=== PATIENT | female | born 1945 | race Caucasian/White ===

== ENCOUNTER 2021-07-18 13:29 | Emergency (ER) | payer MEDICARE, MEDICAID ==
[~2021-07-18] VITALS: Ht 160 cm; Wt 113.6 kg
[~2021-07-18 13:29] MED LIST: ALEN70TA80 PO; AMLO5TAB PO; ASPI-611 PO; ATOR10TA70 PO; CHOL10005 PO; ENAL-79 PO; FURO-150 PO; GLIP5TAB13 PO; LEVO88TA2 PO; METO-395 PO; OXYC1TAB17 PO; PIOG30TA72 PO; POTA8CAP20 PO
[2021-07-18 13:43] VITALS: BP 208/76
[2021-07-18 14:42] LABS: BASOPHILS % (AUTO) 0.5 % (0-1); EOSINOPHILS # (AUTO) 0.1 X10'3 (0-0.9); EOSINOPHILS % (AUTO) 1.2 % (0-6); HEMATOCRIT 38.4 % (35.0-45.0); HEMOGLOBIN 12.5 g/dl (12.0-16.0); LYMPHOCYTES # (AUTO) 1.4 X10'3 (1.1-4.8); LYMPHOCYTES % (AUTO) 24.8 % (21-51); MEAN CORPUSCULAR HEMOGLOBIN 30.8 PG (27.0-31.0); MEAN CORPUSCULAR HGB CONC 32.7 g/dL (33.0-36.5); MEAN CORPUSCULAR VOLUME 94.3 FL (78-98); MEAN PLATELET VOLUME 10.6 FL (7.4-10.4); MONOCYTES # (AUTO) 0.3 X10'3 (0-0.9); MONOCYTES % (AUTO) 4.9 % (2-12); NEUTROPHILS # (AUTO) 3.9 X10'3 (1.8-7.7); NEUTROPHILS % (AUTO) 68.6 % (42-75); PLATELET COUNT 162 X10'3 (140-440); RED BLOOD COUNT 4.07 X10'6 (4.20-5.60); RED CELL DISTRIBUTION WIDTH 15.7 % (11.5-14.5); WHITE BLOOD COUNT 5.7 X10'3 (4.5-11.0)
[2021-07-18 15:06] LABS: ALANINE AMINOTRANSFERASE 38 U/L (12-78); ALBUMIN 3.9 G/DL (3.4-5.0); ALBUMIN/GLOBULIN RATIO 1.1 (1.1-1.5); ALKALINE PHOSPHATASE 77 IU/L (46-116); ANION GAP 11 (8-16); ASPARTATE AMINO TRANSFERASE 66 U/L (10-37); BILIRUBIN,TOTAL 0.7 MG/DL (0.1-1.0); BLOOD UREA NITROGEN 20 MG/DL (7-18); BUN/CREATININE RATIO 19.6 (6.6-38.0); CALCIUM 9.1 MG/DL (8.5-10.1); CHLORIDE 106 MMOL/L (99-107); CREATININE 1.02 MG/DL (0.40-0.90); GLUCOSE 108 MG/DL (70-104); POTASSIUM 4.2 MMOL/L (3.5-5.1); SODIUM 142 MMOL/L (135-145); TOTAL CARBON DIOXIDE 25.3 MMOL/L (24-32); TOTAL PROTEIN 7.6 G/DL (6.4-8.2); eGFR 52 ML/MIN
== END 2021-07-18 17:26 | disposition left against medical advice (07) ==
LOC: ER 13:29
DX: R07.89 Other chest pain (principal); R06.02 Shortness of breath; R53.1 Weakness; R42 Dizziness and giddiness; R11.10 Vomiting, unspecified; I11.0 Hypertensive heart disease with heart failure; I50.9 Heart failure, unspecified; E78.00 Pure hypercholesterolemia, unspecified; E11.9 Type 2 diabetes mellitus without complications; Z88.5 Allergy status to narcotic agent; Z79.82 Long term (current) use of aspirin; Z79.899 Other long term (current) drug therapy
CPT/HCPCS: 71045; 80053; 83880; 84484; 85025; 93005; 99285

== ENCOUNTER 2021-08-06 15:34 | Emergency (ER) | payer MEDICARE, MEDICAID ==
[~2021-08-06] VITALS: Ht 160 cm; Wt 109.1 kg
[2021-08-06 16:11] VITALS: BP 151/58
[2021-08-06] MEDS ORDERED: HYDROcodone/acetaminophen 5mg/325mg tablet PO ONE (16:15)
[2021-08-06] MEDS ORDERED: HYDR-3965 PO (18:29)
== END 2021-08-06 19:10 | disposition home or self-care (01) ==
LOC: ER 15:34
DX: S52.512A Displaced fracture of left radial styloid process, initial encounter for closed fracture (principal); M25.532 Pain in left wrist; I50.9 Heart failure, unspecified; I11.0 Hypertensive heart disease with heart failure; E78.00 Pure hypercholesterolemia, unspecified; E11.9 Type 2 diabetes mellitus without complications; Z88.5 Allergy status to narcotic agent; Z79.82 Long term (current) use of aspirin; Z79.899 Other long term (current) drug therapy; W19.XXXA Unspecified fall, initial encounter; Y93.89 Activity, other specified; Y92.89 Other specified places as the place of occurrence of the external cause; Y99.8 Other external cause status
CPT/HCPCS: 25605; 73110; 99284

== ENCOUNTER 2021-08-18 08:14 | Day surgery (SDC) | payer MEDICARE, MEDICAID ==
[2021-08-18] VITALS (9 sets, daily range): BP systolic 153–185; BP diastolic 67–77
[~2021-08-18] VITALS: Ht 160 cm; Wt 114.7 kg
[~2021-08-18 08:14] MED LIST changes: +DOCUMENT DATE & TIME OF BETA-BLOCKER PO ONE; +HYDR-3965 PO; +famotidine 20mg tablet PO ONE; +ringers solution, lacted 1,000 ML IV SCH
[2021-08-18 09:33] LABS: BASOPHILS % (AUTO) 0.2 % (0-1); EOSINOPHILS # (AUTO) 0.1 X10'3 (0-0.9); EOSINOPHILS % (AUTO) 2.2 % (0-6); LYMPHOCYTES # (AUTO) 1.3 X10'3 (1.1-4.8); LYMPHOCYTES % (AUTO) 29.4 % (21-51); MEAN CORPUSCULAR HEMOGLOBIN 31.4 PG (27.0-31.0); MEAN CORPUSCULAR HGB CONC 32.8 g/dL (33.0-36.5); MEAN CORPUSCULAR VOLUME 95.5 FL (78-98); MEAN PLATELET VOLUME 10.5 FL (7.4-10.4); MONOCYTES # (AUTO) 0.2 X10'3 (0-0.9); MONOCYTES % (AUTO) 5.4 % (2-12); NEUTROPHILS # (AUTO) 2.8 X10'3 (1.8-7.7); NEUTROPHILS % (AUTO) 62.8 % (42-75); PRE OP HEMATOCRIT 36.4 % (35.0-45.0); PRE OP HEMOGLOBIN 11.9 g/dL (12.0-16.0); PRE OP PLATELET COUNT 145 X10'3 (140-440); RED BLOOD COUNT 3.81 X10'6 (4.20-5.60); RED CELL DISTRIBUTION WIDTH 16.3 % (11.5-14.5)
[2021-08-18] MEDS ORDERED: NAPR220C62 PO (09:41)
[2021-08-18] MEDS ORDERED: HYDR-3965 PO (09:41)
[2021-08-18 09:48] LABS: ALBUMIN 3.7 G/DL (3.4-5.0); ALBUMIN/GLOBULIN RATIO 0.9 (1.1-1.5); ALKALINE PHOSPHATASE 91 IU/L (46-116); BLOOD UREA NITROGEN 17 MG/DL (7-18); BUN/CREATININE RATIO 19.5 (6.6-38.0); CALCIUM 9.1 MG/DL (8.5-10.1); CHLORIDE 106 MMOL/L (99-107); CREATININE 0.87 MG/DL (0.40-0.90); PRE OP ALT 26 U/L (30-65); PRE OP ANION GAP 11 (8-16); PRE OP AST 35 U/L (10-37); PRE OP BILIRUB, TOTAL 0.7 MG/DL (0.0-1.0); PRE OP GLUCOSE 124 MG/DL (70-104); PRE OP POTASSIUM 3.8 MMOL/L (3.4-5.1); PRE OP SODIUM 141 MMOL/L (135-145); TOTAL CARBON DIOXIDE 24.4 MMOL/L (24-32); TOTAL PROTEIN 7.6 G/DL (6.4-8.2); eGFR 63 ML/MIN
[2021-08-18 09:59] LABS: ANISOCYTOSIS 1+; LARGE PLATELETS FEW; PLATELET ESTIMATE NORMAL
[2021-08-18] MEDS ORDERED: cefazolin/dext.iso 2gm/100ml 100 ML IV ONE (10:25)
[2021-08-18] MEDS ORDERED: etomidate 2mg/ml inj. ONE (11:02)
[2021-08-18] MEDS ORDERED: succinylcholine 20mg/ml inj IV ONE (11:02)
[2021-08-18] MEDS ORDERED: fentaNYL/PF 50MCG/1 ML 2ML syringe ONE (11:03)
[2021-08-18] MEDS ORDERED: sevoflurane 250ml liquid IH ONE (11:34)
[2021-08-18] MEDS ORDERED: ondansetron/PF 4mg/2ml inj ONE (11:57)
[2021-08-18] MEDS ORDERED: hydrALAZINE 20mg/ml inj. IV ONE (11:58)
[2021-08-18] MEDS ORDERED: ringers solution, lacted 1,000 ML IV SCH (12:25)
[2021-08-18] MEDS ORDERED: fentaNYL/PF 50MCG/1 ML 2ML syringe IV PRN ×2 (12:25)
[2021-08-18] MEDS ORDERED: morphine 2 MG/ML inj. syringe IV PRN (12:25)
[2021-08-18] MEDS ORDERED: ondansetron/PF 4mg/2ml inj IV PRN (12:25)
[2021-08-18] MEDS ORDERED: hydrALAZINE 20mg/ml inj. IV PRN (12:25)
[2021-08-18] MEDS ORDERED: morphine 4 MG/ML inj SYRINge IV PRN (12:25)
[2021-08-18] MEDS ORDERED: enalaprilat dihydrate 2.5mg/2ml vial IV PRN (12:25)
[2021-08-18] MEDS ORDERED: ROPIVAcaine 0.5% (5mg/ml) 30ml vial ONE (12:26)
--- NOTE | 2021-08-18 12:46 | NUR ---
Received from OR via , accompanied by Anesthesiologist DR MESSER and report given by Anesthesiolgist. AWAKENS TO VOICE. VITALS STABLE. DRESSING DI. MARCELLE PAIN. FINGERS WARM AND PINK. LUE IN A SIMPLE SLING.
--- NOTE | 2021-08-18 14:16 | NUR ---
AWAKE AND ORIENTED. VITALS STABLE. DRESSING DI. MARCELLE PAIN. HOME WITH HER SON AT THIS TIME.
== END 2021-08-18 14:16 | disposition home or self-care (01) ==
LOC: OR 08:14
PROVIDERS: ATTEND Orthopaedic Surgery
DX: S52.552A Other extraarticular fracture of lower end of left radius, initial encounter for closed fracture (principal); I11.0 Hypertensive heart disease with heart failure; I50.9 Heart failure, unspecified; G47.30 Sleep apnea, unspecified; G43.909 Migraine, unspecified, not intractable, without status migrainosus; E11.9 Type 2 diabetes mellitus without complications; G89.18 Other acute postprocedural pain; E66.01 Morbid (severe) obesity due to excess calories; Z68.41 Body mass index [BMI] 40.0-44.9, adult; Z90.49 Acquired absence of other specified parts of digestive tract; Z98.51 Tubal ligation status; Z98.890 Other specified postprocedural states; Z88.5 Allergy status to narcotic agent; Z20.822 Contact with and (suspected) exposure to COVID-19; W17.89XA Other fall from one level to another, initial encounter; Y93.89 Activity, other specified; Y92.89 Other specified places as the place of occurrence of the external cause; Y99.8 Other external cause status
CPT/HCPCS: 25607; 36415; 64417; 76942; 80053; 82948; 85025; 87635; 93005; A6222; C1713; C9803; J0330; J0360; J2405; J3010; J7120; Z7506; Z7508; Z7512; 85008; A4618; A6449; A7000; J2795

== ENCOUNTER 2023-01-03 07:02 | Emergency (ER) | payer MEDICARE, MEDICAID ==
[~2023-01-03] VITALS: Ht 160 cm; Wt 110.0 kg
[~2023-01-03 07:02] MED LIST changes: -DOCUMENT DATE & TIME OF BETA-BLOCKER PO ONE; -GLIP5TAB13 PO; +NAPR220C62 PO; -OXYC1TAB17 PO; -famotidine 20mg tablet PO ONE; -ringers solution, lacted 1,000 ML IV SCH
[2023-01-03 07:16] VITALS: BP 184/83
[2023-01-03 08:16] LABS: ALANINE AMINOTRANSFERASE 43 U/L (12-78); ALBUMIN 4.2 G/DL (3.4-5.0); ALKALINE PHOSPHATASE 123 IU/L (46-116); ANION GAP 13 (8-16); ASPARTATE AMINO TRANSFERASE 72 U/L (10-37); BILIRUBIN,TOTAL 1.4 MG/DL (0.1-1.0); BLOOD UREA NITROGEN 18 MG/DL (7-18); BUN/CREATININE RATIO 16.7 (6.6-38.0); CALCIUM 9.6 MG/DL (8.5-10.1); CHLORIDE 99 MMOL/L (99-107); CREATININE 1.08 MG/DL (0.40-0.90); GLUCOSE 239 MG/DL (70-104); SODIUM 135 MMOL/L (135-145); TOTAL CARBON DIOXIDE 23.3 MMOL/L (24-32); TOTAL PROTEIN 8.3 G/DL (6.4-8.2); eGFR 49 ML/MIN
[2023-01-03] MEDS ORDERED: bisacodyl 10mg suppository rectal RC ONE (08:20)
[2023-01-03] MEDS ORDERED: metoclopramide 5 mg/ml inj IV ONE (08:20)
[2023-01-03] MEDS ORDERED: normal saline 1000ML IV soln IVB ONE (08:20)
[2023-01-03 08:25] LABS: EOSINOPHILS # (AUTO) 0.1 X10'3 (0-0.9); HEMOGLOBIN 12.9 g/dl (12.0-16.0); LIPASE 70 U/L (73-393); MAGNESIUM 1.9 MG/DL (1.5-2.4); MEAN CORPUSCULAR HGB CONC 33.6 g/dL (33.0-36.5); MONOCYTES # (AUTO) 0.3 X10'3 (0-0.9)
[2023-01-03 08:27] LABS: BASOPHILS % (AUTO) 0.3 % (0-1); HEMATOCRIT 38.4 % (35.0-45.0); LYMPHOCYTES # (AUTO) 1.6 X10'3 (1.1-4.8); MEAN CORPUSCULAR HEMOGLOBIN 33.2 PG (27.0-31.0); MEAN CORPUSCULAR VOLUME 98.9 FL (78-98); MEAN PLATELET VOLUME 11.8 FL (7.4-10.4); MONOCYTES % (AUTO) 3.4 % (2-12); NEUTROPHILS # (AUTO) 5.8 X10'3 (1.8-7.7); NEUTROPHILS % (AUTO) 74.3 % (42-75); PLATELET COUNT 214 X10'3 (140-440); RED BLOOD COUNT 3.88 X10'6 (4.20-5.60); RED CELL DISTRIBUTION WIDTH 14.7 % (11.5-14.5); WHITE BLOOD COUNT 7.8 X10'3 (4.5-11.0)
[2023-01-03 08:31] LABS: POTASSIUM 4.2 MMOL/L (3.5-5.1)
[2023-01-03 08:58] LABS: LARGE PLATELETS FEW; PLATELET ESTIMATE NORMAL
[2023-01-03] MEDS ORDERED: lactulose 20gm/30ml cup PO ONE (09:25)
--- NOTE | 2023-01-03 09:29 | NUR ---
PT KEEPS STANDING UP FROM COMMODE AND LEANING FOWARD. HAVE REPEATLY ASKED THE PATIENT NOT TO DO THAT FOR SAFETY REASON AND RISK OF FALLING. PT REPLIES "SORRY I HAVE TO"
--- NOTE | 2023-01-03 10:00 | NUR ---
PT HAD LARGE BOWEL MOVEMENT
== END 2023-01-03 11:23 | disposition home or self-care (01) ==
LOC: ER 07:03
DX: R07.9 Chest pain, unspecified (principal); K59.00 Constipation, unspecified; E78.00 Pure hypercholesterolemia, unspecified; I11.0 Hypertensive heart disease with heart failure; Z88.5 Allergy status to narcotic agent; Z79.899 Other long term (current) drug therapy; Z79.1 Long term (current) use of non-steroidal anti-inflammatories (NSAID)
CPT/HCPCS: 36415; 71045; 74018; 80053; 83690; 83735; 83880; 84484; 85008; 85025; 93005; 96361; 96374; 99285; J2765; J7030